=== PATIENT | male | born 1990 | race Caucasian/White ===

== ENCOUNTER 2018-07-18 12:11 | Emergency (ER) | payer OTHER, SELFPAY ==
[2018-07-18 12:36] VITALS: BP 126/81; PULSE 100; RESP 16; TEMP 36.4; O2SAT 100
== END 2018-07-18 13:49 | disposition left against medical advice (07) ==
PROVIDERS: Emergency Provider Internal Medicine
DX: Z53.21 Procedure and treatment not carried out due to patient leaving prior to being seen by health care provider (principal)
CPT/HCPCS: 99282

== ENCOUNTER → 2018-07-22 19:03 | Outpatient (CLI) | payer OTHER, SELFPAY ==
--- NOTE | 2018-07-22 | DI.MRI.S_ITS ---
PROCEDURE: MR SHOULDER LT WO CON INDICATIONS: STRAIN OF MUSCLE AND TENDON OF FRONT WALL OF THORAX TECHNIQUE: Noncontrast oblique coronal T2 fast spin echo with fat saturation, oblique sagittal T1 spin echo and T2 fast spin echo with fat saturation, axial T1 spin echo and T2 fast spin echo with fat saturation through the shoulder. COMPARISON: None. FINDINGS: Image quality: Excellent. Rotator cuff: The supraspinatus, infraspinatus, and subscapularis tendons appear intact throughout. Sagittal images demonstrate no significant muscle atrophy. Bones and bursae: No bone marrow contusions or fractures. No acromioclavicular joint degeneration. The acromion demonstrates conventional anatomy, without an os acromiale. No pathologic subacromial-subdeltoid or subcoracoid bursal fluid is present. Capsule and soft tissues: In the absence of intra-articular contrast, the labrum and glenohumeral ligaments appear intact. The long head of the biceps tendon demonstrates normal location and morphology. The rotator interval appears normal, without fibrosis. The coracohumeral ligament is normal in thickness. There is suggestion of torn left pectoralis major tendon at its attachment to the humerus with 3 cm medial retraction of torn tendon fibers and surrounding soft tissue edema. IMPRESSION: 1. No evidence of rotator cuff tendon tear or tendinosis. 2. No gross focal labral tear. 3. No marrow edema. No fracture or dislocation. 4. Suggestion of torn left pectoralis major tendon with medial retraction of torn tendon fibers as described above. Please correlate with MRI of chest report. Dictated by: Giuliano Trotter M.D. on 07/23/2018 at 8:25 Approved by: Giuliano Trotter M.D. on 07/23/2018 at 8:34
--- NOTE | 2018-07-22 | DI.MRI.S_ITS ---
PROCEDURE: MR CHEST WO CON INDICATIONS: STRAIN OF MUSCLE AND TENDON OF FRONT WALL OF THORAX TECHNIQUE: Axial and oblique coronal T1 spin echo and T2 spin echo with fat saturation, sagittal T1 spin echo and STIR acquired through the affected chest wall. COMPARISON: None. FINDINGS: Image quality: Excellent. Soft tissues: The sternal and clavicular heads of the pectoralis major muscle demonstrate normal bulk and internal signal. There is full-thickness rupture of the distal pectoralis major tendon at its attachment onto the the humeral shaft with 2.5 cm in medial retraction of torn tendon fibers. Mild surrounding soft tissue edema is seen. The nearby quadrilateral space appears normal on axial images. No soft tissue fluid collections. Other visualized muscles appear intact, including the pectoralis minor and coracobrachialis. Bones: Visualized bony structures of the chest wall and upper arm appear intact, without focal marrow edema. IMPRESSION: Full-thickness rupture of left distal pectoralis major tendon at its attachment on humeral shaft with 2.5 cm medial retraction of torn tendon fibers and surrounding soft tissue edema. No muscle signal abnormality. No marrow signal abnormality is noted in left chest wall. Dictated by: Giuliano Trotter M.D. on 07/23/2018 at 9:17 Approved by: Giuliano Trotter M.D. on 07/23/2018 at 9:20
== END ==
PROVIDERS: Visit Provider Physician Assistant Surgical
DX: S29.011A Strain of muscle and tendon of front wall of thorax, initial encounter (principal); X58.XXXA Exposure to other specified factors, initial encounter
CPT/HCPCS: 71550; 73221

== ENCOUNTER → 2018-09-05 07:08 | Outpatient (CLI) | payer OTHER, SELFPAY ==
[2018-09-05 08:07] LABS: Add Manual Diff / Slide Review NO; Basophils Absolute Auto 0 /uL (0-100); Basophils Percent Auto 0.6 % (0-2); Eosinophils Absolute Auto 100 /uL (0-450); Eosinophils Percent Auto 1.8 % (2-4); Hematocrit 47.2 % (41-53); Hemoglobin 16.4 g/dL (13.5-17.5); Lymphocytes Absolute Auto 1600 /uL (1100-4500); Lymphocytes Percent Auto 28.1 % (25-40); Mean Corpuscular HGB Conc 34.7 % (30-36); Mean Corpuscular Hemoglobin 31.6 PG (26-34); Mean Corpuscular Volume 91.1 fL (80-100); Monocytes Absolute Auto 400 /uL (0-900); Monocytes Percent Auto 7.9 % (3-14); Neutrophils Absolute Auto 3400 /uL (1500-7000); Neutrophils Percent Auto 61.6 % (50-75); Platelet Count 209 X10^3/uL (150-400); Red Blood Cell Count 5.18 X10^6/uL (4.5-5.9); Red Cell Distribution Width 12.9 % (11.6-14.8); White Blood Cell Count 5.6 X10^3/uL (4.5-11.0)
[2018-09-05 08:30] LABS: Alanine Aminotransferase 28 IU/L (21-72); Albumin 4.5 g/dL (3.5-5.0); Albumin Globulin Ratio 1.6 (1.0-2.8); Alkaline Phosphatase 43 U/L (38-126); Aspartate Aminotransferase 33 IU/L (17-59); BUN Creatinine Ratio 15.6 (6-22); Blood Urea Nitrogen 14 mg/dL (9-20); Carbon Dioxide 30 mmol/L (22-32); Chloride 101 mmol/L (98-107); Cholesterol 173 mg/dL (140-199); Estimated Glomerular Filt Rate > 60.0 mL/min (>60); Globulin 2.9 g/dL (1.7-4.1); Glucose 95 mg/dL (70-100); HDL Cholesterol 34 mg/dL (40-60); HEMOLYSIS 18 (0-50); LDL Cholesterol Calculated 127 mg/dL (<100); Potassium 4.5 mmol/L (3.4-5.1); Sodium 139 mmol/L (137-145); Total Protein 7.4 g/dL (6.3-8.2); Triglycerides 62 mg/dL (35-150)
[2018-09-05 09:33] LABS: TSH w/ Reflex to FT4 1.47 uIU/mL (0.47-4.68)
== END ==
PROVIDERS: PCP Nurse Practitioner; Visit Provider Nurse Practitioner
DX: Z00.00 Encounter for general adult medical examination without abnormal findings (principal)
CPT/HCPCS: 36415; 80053; 80061; 84443; 85025